=== PATIENT | female | born 1995 | race Caucasian/White ===

== ENCOUNTER 2017-03-17 16:46 | Emergency (ER) | payer BC ==
[~2017-03-17] VITALS: Ht 160 cm; Wt 49.9 kg
[2017-03-17 16:51] VITALS: BP 137/84
== END 2017-03-17 18:21 | disposition home or self-care (01) ==
LOC: ER 16:46 → EDBD 16:46 → ER 18:21
DX: M25.551 Pain in right hip (principal); R07.89 Other chest pain; V43.52XA Car driver injured in collision with other type car in traffic accident, initial encounter; Y93.89 Activity, other specified; Y92.488 Other paved roadways as the place of occurrence of the external cause; Y99.8 Other external cause status
CPT/HCPCS: 71046